=== PATIENT | female | born 1985 ===

== ENCOUNTER → 2020-12-29 08:00 | Outpatient (CLI) | payer OTHER | END | disposition home or self-care (01) | LOC: ADM 12-25 15:15 → LAB 08:00 → AMB-ENDOS 12-31 15:15 → EDSTATUS 12-31 15:15 | PROVIDERS: ATTEND Surgery | DX: R10.10 Upper abdominal pain, unspecified (principal); R10.13 Epigastric pain; Z20.822 Contact with and (suspected) exposure to COVID-19 ==